=== PATIENT | male | born 1960 | race Caucasian/White ===

== ENCOUNTER 2024-03-29 14:18 | Outpatient (CLI) | payer BC ==
[2024-03-29 15:50] LABS: INFLUENZA A- RESP PCR PANEL NOT DETECTED; INFLUENZA B - RESP PCR PANEL NOT DETECTED; RSV- RESP PCR PANEL NOT DETECTED
[2024-03-29 15:52] LABS: SARS-CoV-2 -RESP PCR PANEL DETECTED
== END 2024-03-29 14:19 | disposition home or self-care (01) ==
LOC: LAB.S 14:18
PROVIDERS: ATTEND Physician Assistant
DX: U07.1 COVID-19 (principal)
CPT/HCPCS: 87637